=== PATIENT | female | born 1990 | race Caucasian/White ===

== ENCOUNTER 2017-12-13 15:50 | Day surgery (SDC) | payer MEDICAID, OTHER ==
[2017-12-13 16:35] LABS: ADD MAN DIFF? NO
[2017-12-13 16:40] LABS: WHITE BLOOD COUNT 10.9 10^3/ul (4.8-10.8)
[2017-12-13 16:40] LABS: BASOPHILS % 0.2 % (0.0-2.0); EOSINOPHILS # 0.4 10^3/ul (0.0-0.5); EOSINOPHILS % 3.2 % (0.0-7.0); HEMATOCRIT 35.5 % (37.0-47.0); HEMOGLOBIN 11.7 g/dl (12.0-16.0); LYMPHOCYTES # 2.9 10^3/ul (0.8-2.9); LYMPHOCYTES % 26.8 % (15.0-51.0); MEAN CORPUSCULAR VOLUME 81.8 fl (82.0-101.0); MEAN PLATELET VOLUME 10.8 fl (7.4-10.4); MONOCYTE # 0.6 10^3/ul (0.3-0.9); MONOCYTES % 5.5 % (0.0-11.0); NEUTROPHIL # 6.9 10^3/ul (1.6-7.5); NEUTROPHILS % 63.8 % (39.0-77.0); PLATELET COUNT 347 10^3/UL (140-415); RED BLOOD COUNT 4.34 10^6/ul (4.20-5.40); RED CELL DISTRIBUTION WIDTH 12.5 % (11.5-14.5)
[2017-12-13] MEDS: LACTATED RINGER'S 1,000 ML IV* (16:40)
[2017-12-13 16:50] LABS: INR 0.94; PROTIME 12.7 Sec (11.9-14.9)
[2017-12-13] MEDS: CEFAZOLIN 2 GM/50 ML (PMX) 50 ML IVPB (17:15)
[2017-12-13] MEDS ORDERED: FENTAnyl 50 MCG/ML VIAL ×3 (17:16→19:00)
[2017-12-13] MEDS ORDERED: MIDAZOLAM 1 MG/ML 2 ML INJ (17:18)
[2017-12-13] MEDS ORDERED: CEFAZOLIN 2 GM/50 ML (PMX) 50 ML IVPB (17:30)
[2017-12-13] MEDS: BUPIVACAINE 0.25%/EPI (SDV) 30 ML INJ (17:56)
[2017-12-13] MEDS ORDERED: ONDANSETRON 4 MG INJ ×2 (18:33→18:57)
[2017-12-13] MEDS ORDERED: morphine 10 MG INJ (18:38)
[2017-12-13] MEDS ORDERED: LACTATED RINGER'S 1,000 ML IV (18:43)
[2017-12-13] MEDS ORDERED: KETOROLAC 30 MG INJ (18:47)
[2017-12-13] MEDS ORDERED: CEFAZOLIN 1 GM INJ (18:49)
[2017-12-13] MEDS ORDERED: LIDOCAINE 2% (SDV) 5 ML INJ (18:49)
[2017-12-13] MEDS ORDERED: GLYCOPYRROLATE 0.4 MG INJ (18:49)
[2017-12-13] MEDS ORDERED: PROPOFOL 20 ML (18:49)
[2017-12-13] MEDS ORDERED: NEOSTIGMINE 3 MG/3 ML SYRINGE (18:49)
[2017-12-13] MEDS ORDERED: ROCURONIUM 50 MG INJ (18:49)
[2017-12-13] MEDS ORDERED: HYDROmorphONE 1 MG/5 ML IV SYRINGE IV ×2 (19:00)
[2017-12-13] MEDS ORDERED: DIPHENHYDRAMINE 50 MG INJ IV (19:00)
[2017-12-13] MEDS ORDERED: METOCLOPRAMIDE 10 MG INJ IV (19:00)
[2017-12-13] MEDS ORDERED: ONDANSETRON 4 MG INJ IV (19:00)
[2017-12-13] MEDS ORDERED: MEPERIDINE 25 MG INJ IV (19:00)
[2017-12-13] MEDS: KETOROLAC 60 MG INJ IM (19:45)
[2017-12-13] MEDS: FENTAnyl 50 MCG/ML VIAL IV (19:50)
[2017-12-13] MEDS: DOXYCYCLINE 100 MG TAB PO ×2 (19:52→19:53)
[2017-12-13] MEDS: BUTORPHANOL 2 MG INJ IM (19:52)
== END 2017-12-13 20:38 | disposition home or self-care (01) ==
LOC: SDS 15:50
DX: Z30.2 Encounter for sterilization (principal)
CPT/HCPCS: 58670; 84703; 85025; 85610